=== PATIENT | female | born 1995 | race Caucasian/White ===

== ENCOUNTER 2020-07-22 18:42 | Emergency (ER) | payer OTHER ==
[~2020-07-22] VITALS: Ht 160 cm; Wt 79.4 kg
[2020-07-22 19:36] LABS: URINE BILIRUBIN NEGATIVE (Negative); URINE BLOOD NEGATIVE (Negative); URINE CLARITY CLEAR; URINE COLOR YELLOW; URINE GLUCOSE-RANDOM NEGATIVE (Negative); URINE KETONES NEGATIVE (Negative); URINE LEUKOCYTES-REFLEX NEGATIVE (Negative); URINE NITRITE-REFLEX NEGATIVE (Negative); URINE PROTEIN NEGATIVE (Negative); URINE UROBILINOGEN 0.2 E.U./dl (0.2-1.0)
[2020-07-22 20:02] VITALS: BP 149/78
== END 2020-07-22 20:03 | disposition home or self-care (01) ==
LOC: M.ERS 18:42
PROVIDERS: Personal Emergency Response Attendant
DX: N92.6 Irregular menstruation, unspecified (principal); Z98.51 Tubal ligation status; Z90.49 Acquired absence of other specified parts of digestive tract; Z98.890 Other specified postprocedural states

== ENCOUNTER 2021-09-20 17:36 | Emergency (ER) | payer BC ==
[~2021-09-20] VITALS: Ht 162.6 cm; Wt 90.7 kg
[2021-09-20 19:00] VITALS: BP 132/82
== END 2021-09-20 19:00 | disposition left against medical advice (07) ==
LOC: M.ERS 17:36
DX: R42 Dizziness and giddiness (principal); R51.9 Headache, unspecified; Z53.21 Procedure and treatment not carried out due to patient leaving prior to being seen by health care provider